=== PATIENT | female | born 1990 | race Caucasian/White ===

== ENCOUNTER → 2017-11-21 | Outpatient (CLI) | payer OTHER ==
--- NOTE | 2017-11-21 11:11 | CT ---
EXAMINATION TYPE: CT abdomen pelvis w con DATE OF EXAM: 11/21/2017 COMPARISON: HISTORY: lower ab pain/rt lower back pain CT DLP: 804.8 mGycm CONTRAST: CT scan of the abdomen and pelvis is performed with Oral Contrast and with IV Contrast, patient injec lissette with 100 mL of Isovue 300. FINDINGS: LUNG BASES-: No visible nodule. No infiltrate. LIVER/GB: No calcified gallstones. No space occupying hepatic lesion. Biliary tree is of normal ca liber. PANCREAS: No inflammation. No distinct mass. SPLEEN: No splenic enlargement. No lesion seen. ADRENALS: No nodule. No thickening. KIDNEYS/BLADDER: No hydronephrosis. No nephrolithiasis. No distinct renal mass. Urinary bladder g rossly unremarkable. BOWEL: Normal appendix. Normal bowel caliber. No inflammation. GENITAL ORGANS: IUD is noted to be in place. LYMPH NODES: No greater than 1cm abdominal or pelvic lymph nodes are appreciated. AORTA: No significant abnormality. OSSEOUS STRUCTURES: No significant abnormality is seen. OTHER: No significant additional abnormality is seen. IMPRESSION: 1. No significant abnormality to account for the patient's symptoms.
== END | disposition home or self-care (01) ==
LOC: RADCTMAIN 08:10
PROVIDERS: ATTEND Family Medicine
DX: R10.31 Right lower quadrant pain (principal)
CPT/HCPCS: 74177; Q9967

== ENCOUNTER 2018-03-13 10:23 | Day surgery (SDC) | payer OTHER ==
[2018-03-13 10:51] VITALS: TEMP 98.4
[2018-03-13] MEDS ORDERED: LIDOCAINE 1% 20 ML VIAL (10MG/ML) FOR IV START INTRADERMA ONE (10:59)
[2018-03-13] MEDS ORDERED: LACTATED RINGERS 1,000 ML IV ONE (11:00)
[2018-03-13] MEDS ORDERED: PROPOFOL 10 MG/ML 20 ML VIAL IV ONE (12:29)
[2018-03-13] MEDS ORDERED: LIDOCAINE 1% INJ 10MG/ML (20 ML MDV) ONE (12:29)
--- NOTE | 2018-03-13 12:32 | P.GSHP ---
History of Present Illness H&P Date: 03/13/18 Chief Complaint: Diarrhea This a 27-year-old female who's had chronic issues with diarrhea. Patient's had some mild right lower quadrant pain. She presents today for colonoscopy. Medications and Allergies Home Medications Medication Instructions Recorded Confirmed Type Dextroamphetamine/Amphetamine 15 mg PO DAILY 03/13/18 03/13/18 History [Adderall] Allergies Allergy/AdvReac Type Severity Reaction Status Date / Time No Known Allergies Allergy Verified 03/13/18 10:34 Surgical - Exam Vital Signs Temp Pulse Resp BP Pulse Ox 98.4 F 81 16 122/68 100 03/13/18 10:50 03/13/18 10:50 03/13/18 10:50 03/13/18 10:50 03/13/18 10:50 - General well developed, well nourished, no distress - Eyes PERRL - ENT normal pinna - Neck no masses - Respiratory normal expansion - Cardiovascular Rhythm: regular - Abdomen Abdomen: soft Assessment and Plan Assessment: Diarrhea. We'll perform colonoscopy.
--- NOTE | 2018-03-13 12:48 | P.OP ---
Date of Procedure: 03/13/18 Preoperative Diagnosis: Diarrhea Postoperative Diagnosis: Normal colon, random rectal biopsy pathology pending Procedure(s) Performed: Colonoscopy Anesthesia: MAC Surgeon: Alonzo Lam Pathology: other (Rectum) Condition: stable Disposition: PACU Description of Procedure: PROCEDURE: The patient was placed on the endoscopy table in the lateral position. Digital rectal examination was performed which revealed no abnormalities. s. Flexible colonoscope was then placed in the patient's anus and passed throughout the entire colon. The ileocecal valve was visualized. The cecum, ascending, transverse, descending and sigmoid colon were normal. The rectum was normal as well. There were no masses, polyps or diverticula noted in the entire colon. There is no evidence of inflammation in the colon. Due to the patient's symptoms of diarrhea a random rectal biopsies performed.
[2018-03-13 12:54] VITALS: RESP 18
[2018-03-13 13:08] VITALS: BP 130/65; PULSE 78
== END 2018-03-13 13:29 | disposition home or self-care (01) ==
LOC: ORWHC2ENDO 10:23
PROVIDERS: ATTEND Surgery
DX: R19.7 Diarrhea, unspecified (principal); Z79.899 Other long term (current) drug therapy
CPT/HCPCS: 81025; 88305; 45380; J2001; J2704

== ENCOUNTER 2020-10-03 06:05 | Inpatient (IN) | payer BC ==
[2020-10-03] MEDS ORDERED: CARBOPROST TROMETHAMINE 250 MCG/ML 1 ML AMP IM PRN (06:22)
[2020-10-03] MEDS ORDERED: OXYTOCIN 10 UNIT/ML 1 ML VIAL IM PRN (06:22)
[2020-10-03] MEDS ORDERED: TERBUTALINE 1 MG/ML VIAL SQ PRN (06:22)
[2020-10-03] MEDS ORDERED: METHYLERGONOVINE 0.2 MG/ML 1 ML AMP IM PRN (06:22)
[2020-10-03] MEDS ORDERED: LIDOCAINE 0.5% (PF) 5 MG/ML (50 ML SDV) SQ PRN (06:22)
[2020-10-03] MEDS ORDERED: OXYTOCIN 30 UNITS/500 ML NS 30 UNIT in SALINE 1 500ML.BAG IV SCH (06:30)
[2020-10-03] MEDS ORDERED: LACTATED RINGERS 1,000 ML IV SCH (06:30)
[2020-10-03 06:32] LABS: Glucose,Whole Blood 111 mg/dL (75-99)
[2020-10-03] MEDS: LACTATED RINGERS 1,000 ML IV SCH ×3 (06:33→14:34)
[2020-10-03 06:47] LABS: Basophils % (A) 0 %; Eosinophils # (A) 0.2 k/uL (0-0.7); Eosinophils % (A) 2 %; HCT 36.1 % (34.0-46.0); HGB 12.1 gm/dL (11.4-16.0); Lymphocytes % (A) 22 %; MCH 30.5 pg (25.0-35.0); MCHC 33.5 g/dL (31.0-37.0); Mean Platelet Volume 8.5; Monocytes # (A) 0.6 k/uL (0-1.0); Monocytes % (A) 6 %; Neutrophils % (A) 67 %; Platelet Count 237 k/uL (150-450); RBC 3.96 m/uL (3.80-5.40); RDW 13.2 % (11.5-15.5); WBC 8.9 k/uL (3.8-10.6)
--- NOTE | 2020-10-03 08:03 | P.HPOB ---
History of Present Illness H&P Date: 10/03/20 Chief Complaint: IUP at 39 3/7 weeks, GDM A1 This is a 30-year-old at 39-3/7 weeks that presents to labor and delivery for scheduled induction of labor. Patient has been receiving routine care with a diagnosis of gestational diabetes, diet-controlled. Patient has had good control of her blood sugars since the diagnosis. Patient did undergo ultrasound for estimated weight, 77th percentile ( 7-9), normal COSTA. on 09/19. Patient admits to good movement, denies vaginal bleeding or loss of fluid. On bloodwork this patient has a blood type of A+, rubella status immune, hepatitis B surface antigen negative, HIV negative, RPR is nonreactive, group beta strep cultures were negative. Review of Systems Constitutional: Denies chills, Denies fatigue, Denies fever Ears, nose, mouth and throat: Denies headache Cardiovascular: Reports leg edema Respiratory: Denies dyspnea Gastrointestinal: Denies constipation, Denies diarrhea, Denies nausea, Denies vomiting Genitourinary: Reports Past Medical History Past Medical History: No Reported History History of Any Multi-Drug Resistant Organisms: None Reported Additional Past Surgical History / Comment(s): Foot surgery and nose surgery Past Anesthesia/Blood Transfusion Reactions: No Reported Reaction Past Psychological History: No Psychological Hx Reported Smoking Status: Never smoker Past Alcohol Use History: None Reported Past Drug Use History: None Reported - Past Family History Mother Family Medical History: No Reported History Medications and Allergies Home Medications Medication Instructions Recorded Confirmed Type Aspirin 1 tab PO ONCE 10/03/20 10/03/20 History Doxylamine Succinate [Unisom] 1 tab PO ONCE 10/03/20 10/03/20 History Pnv No.95/Ferrous Fum/Folic AC 1 tab PO ONCE 10/03/20 10/03/20 History [ Multivitamin Tablet] Allergies Allergy/AdvReac Type Severity Reaction Status Date / Time No Known Allergies Allergy Verified 10/03/20 06:21 Exam Osteopathic Statement: *. No significant issues noted on an osteopathic structural exam other than those noted in the History and Physical/Consult. 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 heart tones returned be category 1 and she is ewa every 5 minutes. Results Result Diagrams: 10/03/20 06:38 Abnormal Lab Results - Last 24 Hours (Table) 10/03/20 Range/Units 06:30 POC Glucose (mg/dL) 111 H (75-99) mg/dL Assessment and Plan (1) 39 weeks gestation of Current Visit: Yes Status: Acute Code(s): Z3A.39 - 39 WEEKS GESTATION OF SNOMED Code(s): 55579594 (2) GDM (gestational diabetes mellitus), class A1 Current Visit: Yes Status: Acute Code(s): O24.410 - GESTATIONAL DIABETES MELLITUS IN , DIET CONTROLLED SNOMED Code(s): 87970134 Plan: 30-year-old at 39-3/7 weeks' known gestational diabetic is admitted to labor and delivery for induction of labor. Pitocin induction of labor is begun per hospital protocol. Options for analgesia are discussed including Stadol and epidural should she desire. We'll continue close observation, anticipate spontaneous vaginal delivery.
[2020-10-03] MEDS ORDERED: BUTORPHANOL 1 MG/ML 1 ML VIAL IV PRN (08:22)
[2020-10-03] MEDS ORDERED: fentaNYL (PF) 50 MCG/ML 5 ML AMP ONE (14:02)
[2020-10-03] MEDS ORDERED: SODIUM CHLORIDE 0.9% 100 ML BAG ONE (14:02)
[2020-10-03] MEDS ORDERED: ROPIVACAINE 5MG/ML 20ML VIAL ONE (14:02)
[2020-10-03] MEDS ORDERED: CITRIC ACID-SODIUM CITRATE 15 ML CUP PO ONE (22:42)
[2020-10-03] MEDS ORDERED: PRENATAL VIT-IRON-FOLIC ACID 1 EACH CAP PO ONE (22:45)
[2020-10-03] MEDS ORDERED: fentaNYL (PF) 50 MCG/ML 2 ML AMP ONE (23:11)
[2020-10-03] MEDS ORDERED: CARBOPROST TROMETHAMINE 250 MCG/ML 1 ML AMP IM ONE (23:11)
[2020-10-03] MEDS ORDERED: ePHEDrine SULFATE/0.9% NACL/PF 50 MG/5 ML SYRINGE IV ONE (23:11)
[2020-10-03] MEDS ORDERED: METHYLERGONOVINE 0.2 MG/ML 1 ML AMP ONE (23:11)
[2020-10-03] MEDS ORDERED: MORPHINE SULFATE (PF) 0.3 MG/0.3 ML SYR ONE (23:11)
[2020-10-03] MEDS ORDERED: OXYTOCIN 30 UNITS/500 ML NS BAG IV ONE (23:11)
[2020-10-03] MEDS ORDERED: ONDANSETRON 4 MG/2 ML VIAL ONE (23:11)
[2020-10-03] MEDS ORDERED: DIPHENOX-ATROP 2.5-0.025 MG 1 EACH TAB PO PRN (23:47)
[2020-10-04] MEDS ORDERED: miSOPROStoL 200 MCG TAB VAGINAL STA (00:14)
[2020-10-04] MEDS ORDERED: diphenhydrAMINE 50 MG/ML 1 ML VIAL IVP PRN ×2 (00:16)
[2020-10-04] MEDS ORDERED: LACTATED RINGERS 1,000 ML IV SCH (00:16)
[2020-10-04] MEDS ORDERED: NALOXONE 0.4 MG/ML 1 ML VIAL IV PRN (00:16)
[2020-10-04] MEDS ORDERED: diphenhydrAMINE 50 MG CAP PO PRN (00:16)
[2020-10-04] MEDS ORDERED: ONDANSETRON 4 MG/2 ML VIAL IVP PRN (00:16)
[2020-10-04] MEDS ORDERED: OXYTOCIN 30 UNITS/500 ML NS 30 UNIT in SALINE 1 500ML.BAG IV SCH (00:16)
[2020-10-04] MEDS ORDERED: SIMETHICONE 80 MG CHEWABLE PO PRN (00:16)
[2020-10-04] MEDS ORDERED: diphenhydrAMINE 25 MG CAP PO PRN (00:16)
[2020-10-04] MEDS ORDERED: ZOLPIDEM 5 MG TAB PO PRN (00:16)
[2020-10-04] MEDS ORDERED: METOCLOPRAMIDE 5 MG/ML 2 ML VIAL IVP PRN (00:16)
--- NOTE | 2020-10-04 00:19 | P.OP ---
Date of Procedure: 10/03/20 Preoperative Diagnosis: IUP at 39 3/7 weeks, arrest of descent and dilation Postoperative Diagnosis: Same Procedure(s) Performed: Primary low transverse section Anesthesia: epidural Surgeon: Sandra Schultz Manager Custom #1: Kayla Brambila Estimated Blood Loss (ml): 603 IV fluids (ml): 1,000 Urine output (ml): 150 Pathology: other (Placenta) Condition: stable Disposition: observation Indications for Procedure: 30-year-old at 39-3/7 weeks that presented to labor and delivery for induction of labor. Patient has known gestational diabetes and has been diet controlled. Patient was admitted to labor and delivery Pitocin induction of labor was begun. Patient made slow progress throughout labor eventually stalling at 6 cm. Infant was noted to be at -1 station. No further descent was appreciated. Exam was discussed with patient and although frustrated she understands. We'll proceed with primary low transverse section. Operative Findings: Female delivered at 2328, weight of 7 lbs. 15 oz. and Apgars of 9 and 9 at one and 5 minutes respectively. Significant uterine atony was appreciated after delivery of , 13 was given 2, Hemabate, Pitocin. Description of Procedure: Patient was taken back to the operating suite where epidural anesthesia was found to be adequate. She was then prepped and draped in normal sterile fashion in the dorsal supine position. A Pfannenstiel skin incision was made with the scalpel and carried through to the underlying layer of fascia. The fascia was then incised in the midline and extended laterally. The superior aspect of the fascial incision was then grasped zion clamps, elevated and underlying rectus muscle was dissected off sharply. Attention was then turned the inferior aspect of the fascial incision which was grasped zion clamps, elevated and underlying rectus muscle was dissected off sharply. Rectus muscles were in the midline the peritoneum was identified and entered. The bladder blade was then inserted into the pelvis. The vesicouterine peritoneum was identified and the bladder flap was created using sharp and blunt dissection. Hysterotomy incision was made with the scalpel the was encountered in the vertex presentation delivered in the usual fashion the umbilical cord was doubly clamped and cut and the infant was handed off to awaiting RN. The placenta was then delivered manually and the uterus was cleared of all clots and debris. The uterine incision was closed 0 Vicryl in a running locked fashion. A second inverting suture was performed. Bleeding was noted on multiple areas of the uterus therefore multiple [id number] sutures were used to obtain hemostasis. Significant uterine atony was appreciated, Methergine was given during closure of the hysterotomy incision. Hemabate subsequently given, followed by Methergine proximally 15-20 minutes after first injection. Contraction of the uterus was appreciated. Uterus was returned to the abdomen. The gutters were cleared of all clots and debris. Uterine incision was inspected and found to be hemostatic. The uterus is noted to be ewa and firm. The peritoneum was then loosely reapproximated. The rectus muscles were inspected and found to be hemostatic. The fascia was closed 0 Vicryl in a running fashion from one lateral edge the midline and the other lateral edge the midline. Subcutaneous tissue was irrigated found be hemostatic. Closed with 3-0 Vicryl in a running fashion. Skin was then closed with 4-0 Vicryl in a subcuticular fashion. Steri-Strips and sterile dressings were applied. Uterus appeared firm and below the umbilicus at the time of the skin and closure. All counts were noted to be correct 2. Patient did tolerate procedure well
[2020-10-04] MEDS: ACETAMINOPHEN IV (For NPO) 1,000 MG in EMPTY BAG 1 BAG IVPB SCH ×2 (03:08→18:52)
[2020-10-04] MEDS: ACETAMINOPHEN TAB 500 MG TAB PO SCH ×5 (04:05→23:15)
[2020-10-04] MEDS: IBUPROFEN 600 MG TAB PO SCH ×4 (05:02→23:24)
[2020-10-04] MEDS ORDERED: IBUPROFEN IV 800 MG in SODIUM CHLORIDE 0.9% 250 ML IV SCH (06:00)
[2020-10-04 06:07] LABS: Basophils % (A) 0 %; Eosinophils % (A) 0 %; HCT 31.6 % (34.0-46.0); HGB 10.7 gm/dL (11.4-16.0); Lymphocytes # (A) 1.4 k/uL (1.0-4.8); Lymphocytes % (A) 12 %; MCH 31.2 pg (25.0-35.0); MCHC 33.9 g/dL (31.0-37.0); Mean Platelet Volume 8.2; Monocytes # (A) 0.6 k/uL (0-1.0); Monocytes % (A) 5 %; Neutrophils # (A) 10.2 k/uL (1.3-7.7); Neutrophils % (A) 82 %; Platelet Count 192 k/uL (150-450); RBC 3.43 m/uL (3.80-5.40); RDW 13.1 % (11.5-15.5); WBC 12.5 k/uL (3.8-10.6)
--- NOTE | 2020-10-04 08:41 | P.PNOBGPC ---
Subjective - Subjective Principal diagnosis: Postop day 1, primary , arrest of descent and dilation Interval history: Patient is doing well this morning. Jaramillo remains draining clear yellow urine. Patient states her pain is well-controlled. Her lochia has been minimal overnight. Patient reports: Reports appetite normal, Reports pain well controlled : doing well Objective - Vital Signs Latest vital signs: Vital Signs Temp Pulse Resp BP Pulse Ox 10/04/20 08:00 98.0 F 91 16 101/68 10/04/20 04:30 98.5 F 91 18 123/68 95 10/04/20 03:32 98.4 F 93 16 123/67 97 10/04/20 03:02 106 H 16 118/59 98 10/04/20 02:32 100 16 133/70 99 10/04/20 02:17 95 16 137/69 100 10/04/20 02:02 108 H 16 128/69 100 10/04/20 01:47 100 16 130/66 100 10/04/20 01:32 101 H 16 145/75 98 10/04/20 01:17 99 16 137/65 99 10/04/20 01:02 104 H 16 132/59 98 10/04/20 00:47 105 H 17 129/69 97 10/04/20 00:32 105 H 16 137/80 98 10/04/20 00:17 98.2 F 100 16 133/78 99 Intake and Output 10/03/20 10/04/20 10/04/20 22:59 06:59 14:59 Intake Total 1017.533 Output Total 250 600 300 Balance -250 417.533 -300 Intake: IV 1000 Intake, IV Titration 17.533 Amount Oxytocin 30 Units/500 ml 17.533 Ns 30 unit In Saline 1 500ml.bag @ Per Protocol IV .Q0M REPLACED BY [facility] Rx#:[id number] Output: Urine 250 600 300 Other: Voiding Method Indwelling Catheter - Exam Extremities: Present: normal, edema Abdomen: Present: normal appearance, soft Incision: Present: normal, dry, intact Uterus: Present: normal, firm - Labs Labs: Abnormal Lab Results - Last 24 Hours (Table) 10/04/20 Range/Units 05:23 WBC 12.5 H (3.8-10.6) k/uL RBC 3.43 L (3.80-5.40) m/uL Hgb 10.7 L (11.4-16.0) gm/dL Hct 31.6 L (34.0-46.0) % Neutrophils # 10.2 H (1.3-7.7) k/uL Assessment and Plan (1) 39 weeks gestation of Current Visit: Yes Status: Acute Code(s): Z3A.39 - 39 WEEKS GESTATION OF SNOMED Code(s): 45866331 (2) GDM (gestational diabetes mellitus), class A1 Current Visit: Yes Status: Acute Code(s): O24.410 - GESTATIONAL DIABETES MELLITUS IN , DIET CONTROLLED SNOMED Code(s): 57937975 (3) Arrest of descent, delivered, current hospitalization Current Visit: Yes Status: Acute Code(s): O62.1 - SECONDARY UTERINE INERTIA SNOMED Code(s): 54602205 (4) Arrest of dilation, delivered, current hospitalization Current Visit: Yes Status: Acute Code(s): O62.1 - SECONDARY UTERINE INERTIA SNOMED Code(s): 11094007 (5) S/P section Current Visit: Yes Status: Acute Code(s): Z98.891 - HISTORY OF UTERINE SCAR FROM PREVIOUS SURGERY SNOMED Code(s): 562439576 (6) Uterine atony Current Visit: Yes Status: Acute Code(s): O62.2 - OTHER UTERINE INERTIA SN OMED Code(s): 1800383 Plan: 30-year-old G1 now P1 status post primary for arrest of descent and dilation. Patient is doing well this morning. Lochia has been minimal overnight. We'll plan to discontinue Jaramillo catheter. Advance diet. Encourage increased ambulation and watch bleeding closely.
--- NOTE | 2020-10-04 09:22 | P.PN ---
Progress Note - Text 10/04/20 702am 30 year old female s/p csection with spinal duramorph. pt sen today and evaluated for post op pain control, pt has a vas of 1 with no c/o n/v or pruritis
[2020-10-04] MEDS: SENNOSIDES-DOCUSATE SODIUM 1 EACH TAB PO SCH ×2 (09:58→20:03)
[2020-10-05] MEDS: IBUPROFEN 600 MG TAB PO SCH ×2 (04:57→11:09)
[2020-10-05] MEDS: SENNOSIDES-DOCUSATE SODIUM 1 EACH TAB PO SCH (08:08)
--- NOTE | 2020-10-05 08:08 | P.DS ---
Providers Date of admission: 10/03/20 06:05 Expected date of discharge: 10/05/20 Attending physician: Sandra Schultz Primary care physician: Stated None Hospital Course: This is a 30-year-old female 1 para 0 EDC 10/07/2020 at 39-3/7 weeks' gestation. Patient's history significant for gestational diabetes, diet controlled, blood type A positive, rubella status immune, group B strep cultures negative. Please see dictated history and physical for details. Patient presented for induction. Artificial amniorrhexis revealed clear fluid. She had arrest of dilatation and descent, and underwent a primary low transverse section. She gave to a liveborn female with scores of 9 and 9 at one and 5 minutes respectively. There was a nuchal cord 1 that was reduced. weighed 7 pounds 8.5 ounces or 3415 g. Please see dictated delivery note for details. Estimated blood loss 609 mL's. This morning the patient is doing well. Breast-feeding is going nicely. Infant is doing well. Incision is clean and dry, intact, Steri-Strips applied. Vital signs upon stable and the patient is afebrile. Fundus is firm and in the midline, symmetric and 18 week size. Extremities reveal trace edema. Patient complains of only minimal pain. She is judged to be in very good condition for discharge home. She will use iokl-dmt-dfyonyy ibuprofen, 600 mg every 6 hours alternating with Tylenol extra strength, 1000 mg every 4 hours as needed. No driving for 2 weeks. No intercourse. No heavy lifting. She will call with any fevers shakes or chills, foul smelling or copious lochia, with the passage of large blood clots, with any pain not alleviated by grza-egt-ctafrjr products, or indeed with any concerns. 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 Assessment: Doing well second postoperative day Patient Condition at Discharge: Good Plan - Discharge Summary Discharge Rx Participant: No New Discharge Prescriptions: No Action Aspirin 1 tab PO ONCE Pnv No.95/Ferrous Fum/Folic AC [ Multivitamin Tablet] 1 tab PO ONCE Doxylamine Succinate [Unisom] 1 tab PO ONCE Discharge Medication List Aspirin 1 tab PO ONCE 10/03/20 [History] Doxylamine Succinate [Unisom] 1 tab PO ONCE 10/03/20 [History] Pnv No.95/Ferrous Fum/Folic AC [ Multivitamin Tablet] 1 tab PO ONCE 10/03/20 [History] Follow up Appointment(s)/Referral(s): Sandra Schultz DO [Doctor of Osteopathic Medicine] - 2 Weeks Discharge Disposition: HOME SELF-CARE
[2020-10-05] MEDS: ACETAMINOPHEN TAB 500 MG TAB PO SCH (08:09)
[2020-10-05 08:25] VITALS: RESP 16
[2020-10-05 12:00] VITALS: BP 103/57; PULSE 92; TEMP 97.4
== END 2020-10-05 14:00 | disposition home or self-care (01) | DRG 788 ==
LOC: 4FBP 06:05
PROVIDERS: ADMIT Obstetrics & Gynecology Obstetrics; ATTEND Obstetrics & Gynecology Obstetrics
PROC: 3E033VJ Introduction of Other Hormone into Peripheral Vein, Percutaneous Approach (ICD-10-PCS; 2020-10-03)
PROC: 10D00Z1 Extraction of Products of Conception, Low, Open Approach (ICD-10-PCS; 2020-10-03)
PROC: 3E0P7VZ Introduction of Hormone into Female Reproductive, Via Natural or Artificial Opening (ICD-10-PCS; principal; 2020-10-03 23:15)
DX: O24.420 Gestational diabetes mellitus in childbirth, diet controlled (principal); O62.1 Secondary uterine inertia; O62.0 Primary inadequate contractions; O69.81X0 Labor and delivery complicated by cord around neck, without compression, not applicable or unspecified; Z37.0 Single live birth; Z3A.39 39 weeks gestation of pregnancy
CPT/HCPCS: 85025; 86850; 86900; 86901

== ENCOUNTER 2023-03-07 05:55 | Inpatient (IN) | payer BC ==
--- NOTE | 2023-03-06 06:21 | P.HPOB ---
History of Present Illness H&P Date: 03/06/23 Chief Complaint: Repeat section, gestational diabetes This patient is a pleasant 32-year-old 2 para 1 female estimated date of confinement 03/13/2023 estimated gestational age 39 and one sevenths weeks who presents to labor and delivery for elective repeat section due to previous section. Patient's has been complicated by gestational diabetes has been managed by Dr. Mandujano with good control. Patient's had a previous section due to failed induction of labor and wishes to have a repeat . First delivery was complicated apparently by hemorrhage secondary to uterine atony. This has been otherwise uncomplicated. Review of Systems Genitourinary: Reports Menstruation: Reports amenorrhea Past Medical History Past Medical History: Diabetes Mellitus, Skin Disorder Additional Past Medical History / Comment(s): GDM- diet controlled, rosacea, mild edema to lower legs History of Any Multi-Drug Resistant Organisms: None Reported Past Surgical History: Section Additional Past Surgical History / Comment(s): Foot surgery and nose surgery Past Anesthesia/Blood Transfusion Reactions: No Reported Reaction Past Psychological History: ADD/ADHD Smoking Status: Never smoker Past Alcohol Use History: None Reported Past Drug Use History: None Reported - Past Family History Mother Family Medical History: Hypertension Additional Family Medical History / Comment(s): neice bone cancer Father Family Medical History: Diabetes Mellitus, Hyperlipidemia, Hypertension Additional Family Medical History / Comment(s): grandmother breast cancer Medications and Allergies Home Medications Medication Instructions Recorded Confirmed Type Aspirin 1 tab PO DAILY 10/03/20 02/27/23 History Doxylamine Succinate [Unisom] 50 mg PO HS 10/03/20 02/27/23 History Pnv No.95/Ferrous Fum/Folic AC 1 tab PO DAILY 10/03/20 02/27/23 History [ Multivitamin Tablet] Allergies Allergy/AdvReac Type Severity Reaction Status Date / Time No Known Allergies Allergy Verified 02/27/23 12:48 Exam - OBG Physical Exam Abdomen: bowel sounds normal, no diffuse tenderness, no bruit present, no guarding noted, no hepatomegaly, no splenomegaly, no mass Vagina: normal moisture, no discharge Cervix: no lesion, no discharge Uterus: enlarged Results blood work shows she is A positive, rubella immune, RPR is nonreactive, hepatitis B and C are negative, maternity T 21 was 46 excess X, anatomy and growth ultrasounds have been normal, group B strep was negative. First trimester Glucola was 175. Assessment and Plan Assessment: This is a pleasant 32-year-old 2 para 1 female 39 and one sevenths weeks gestation with previous section who is requesting repeat section. Patient's also had gestational diabetes with good control. Plan is repeat low transverse section. Patient understands this surgery and risks and risks of infection, bleeding, possible injury bowel, bladder, vessels, and other organs. All the patient's questions are answered and a written consent is obtained. (1) Previous delivery affecting Status: Acute Code(s): O34.219 - MATERNAL CARE FOR UNSP TYPE SCAR FROM PREVIOUS DEL SNOMED Code(s): 119910050 (2) 39 weeks gestation of Status: Acute Code(s): Z3A.39 - 39 WEEKS GESTATION OF SNOMED Code(s): 40928310 (3) GDM (gestational diabetes mellitus), class A1 Status: Acute Code(s): O24.410 - GESTATIONAL DIABETES MELLITUS IN , DIET CONTROLLED SNOMED Code(s): 82749555
[2023-03-07] MEDS ORDERED: CARBOPROST TROMETHAMINE 250 MCG/ML 1 ML AMP IM PRN (06:13)
[2023-03-07] MEDS ORDERED: METHYLERGONOVINE 0.2 MG/ML 1 ML AMP IM PRN (06:13)
[2023-03-07] MEDS ORDERED: CITRIC ACID-SODIUM CITRATE 15 ML CUP PO ONE (06:13)
[2023-03-07] MEDS ORDERED: OXYTOCIN 10 UNIT/ML 1 ML VIAL IM PRN (06:13)
[2023-03-07] MEDS ORDERED: miSOPROStoL 200 MCG TAB PO PRN (06:13)
[2023-03-07] MEDS ORDERED: LACTATED RINGERS 1,000 ML IV ONE (06:13)
[2023-03-07] MEDS ORDERED: TRANEXAMIC 1,000 MG/100ML-NACL 1,000 MG in EMPTY BAG 1 BAG IV PRN (06:13)
[2023-03-07] MEDS ORDERED: LACTATED RINGERS 1,000 ML IV SCH (06:13)
[2023-03-07 06:36] LABS: Glucose,Whole Blood 84 mg/dL (70-110)
[2023-03-07 07:22] LABS: Basophils % (A) 0 %; Eosinophils # (A) 0.2 k/uL (0-0.7); Eosinophils % (A) 4 %; HCT 36.2 % (34.0-46.0); HGB 11.8 gm/dL (11.4-16.0); Lymphocytes # (A) 1.7 k/uL (1.0-4.8); Lymphocytes % (A) 27 %; MCH 29.2 pg (25.0-35.0); MCHC 32.6 g/dL (31.0-37.0); MCV 89.6 fL (80.0-100.0); Monocytes # (A) 0.4 k/uL (0-1.0); Monocytes % (A) 6 %; Neutrophils # (A) 3.7 k/uL (1.3-7.7); Neutrophils % (A) 60 %; Platelet Count 201 k/uL (150-450); RBC 4.04 m/uL (3.80-5.40); RDW 13.4 % (11.5-15.5); WBC 6.2 k/uL (3.8-10.6)
[2023-03-07] MEDS ORDERED: ePHEDrine 50 MG/ML 1 ML VIAL ONE (07:42)
[2023-03-07] MEDS ORDERED: DEXAMETHASONE SOD PHOSPHATE 4 MG/ML 1 ML VIAL ONE (07:42)
[2023-03-07] MEDS ORDERED: OXYTOCIN 30 UNITS/500 ML NS BAG IV ONE (07:42)
[2023-03-07] MEDS ORDERED: ONDANSETRON 4 MG/2 ML VIAL ONE (07:42)
[2023-03-07] MEDS ORDERED: PHENYLEPHRINE 10 MG/ML VIAL ONE (07:42)
[2023-03-07] MEDS ORDERED: MORPHINE SULFATE (PF) 0.3 MG/0.3 ML SYR ONE (07:42)
[2023-03-07] MEDS ORDERED: KETOROLAC 15 MG/ML 1 ML VIAL ONE (07:42)
[2023-03-07] MEDS ORDERED: NALOXONE 0.4 MG/ML 1 ML VIAL IV PRN ×2 (08:09→10:34)
--- NOTE | 2023-03-07 08:13 | P.ANPRN ---
Procedure Note - Anesthesia - Epidural/Spinal Spinal Date of Procedure: 03/07/23 Procedure Start Time: 07:50 Procedure Stop Time: 07:56 Location of Patient: OB Indication: Acute Post-Operative Pain, Requested by Surgeon Sedation Type: Awake Preparation: Sterile Dressing Position: Sitting Catheter: None Needle Guage: 25 Injectate: 300 mcg of PF -Morphine with 1.3 ml of 0.75% Bupivacaine heavy Blood Aspirated: No Pain Paresthesia on Injection Noted: No Events: Uneventful and Well Tolerated
--- NOTE | 2023-03-07 08:48 | P.OP ---
Date of Procedure: 03/07/23 Preoperative Diagnosis: #1: 39 and one sevenths week intrauterine . #2: Previous section desires repeat. #3: Gestational diabetes Postoperative Diagnosis: #1: Same. #2: Pelvic adhesions Procedure(s) Performed: #1: Repeat low transverse section. #2: Lysis of adhesions. Anesthesia: spinal Surgeon: Manuel Pinedo Rice Farmworker #1: Linda Gonzalez Estimated Blood Loss (ml): 800 Pathology: other (Placenta) Condition: stable Disposition: floor Indications for Procedure: Please see dictated H&P for intimate details of this patient's admission. Brief summary is a pleasant 32-year-old 2 para 1 female 39 and one sevenths weeks gestation admitted to labor and delivery for elective repeat section. Patient understands this surgery and risks and risks of infection, bleeding, possible injury bowel, bladder, vessels, and other organs. All the patient's questions are answered and a written consent is obtained. Operative Findings: This is a vigorous viable female infant Apgars 8 and 9 delivery time is 0809 hrs. Infant grossly appears normal. Patient had elevated adhesions to the anterior uterus and the right and left adnexal area to the peritoneum. The adhesions on the left side were dense. Description of Procedure: This patient has a Jaramillo catheter placed to straight drain. She is subsequently taken to the operating room and sat up for spinal anesthetic is administered without incident. With an adequate level of anesthesia, she has abdominal prep and drape. Scalpels and taken the previous Pfannenstiel incision is incised. A second scalpel is taken down to the fascia and the fascia scored with a knife. Fascial incision extended bilaterally using the Thomas scissors. Fascia is then dissected off the rectus muscles sharply. Rectus muscles are the peritoneum was identified and entered sharply. Immediately I noticed adhesions of the peritoneum to the anterior uterus. These were quite dense on the left side extending over to the corneal area and there were some also some adhesions on the right side. The bladder blade is placed. Bladder peritoneum was taken sharply off the lower uterine segment. Scalpels and taken a low transverse uterine incision is then made. Using a hemostat into the uterine cavity bluntly and there is loss of a copious amount of clear fluid. Uterine incision is then extended. The 's head is then guided through the incision with fundal pressure delivered. Mouth and nares are bulb suctioned. There is no evidence of a nuchal with more fundal pressure we then have delivery the rest of this infant's body. This is a vigorous viable female infant Apgars are 8 and 9 delivery time was 0809 hrs. has spontaneous respirations and good cry and grossly appears normal. The umbilical cord was then doubly clamped and cut appears to be trivascular. Baby's handed off to the nurses in attendance. The placenta is then manually extracted intact. Uterus is then externalized as best as possible through the adhesions. Uterine edges demarcated with Yanez clamps and then closed using 0 Vicryl running locked fashion 2 layers. There is also an area the anterior uterus where adhesions were I put a [id number] 0 Vicryl good hemostasis is noted. Excess fluid is removed from the abdomen and pelvis. I am able to release the adhesion on the right side. The adhesion on the left side was too dense and cannot be removed safely. This completed, uterus is placed back into the abdomen. Excellent hemostasis is noted. The fallopian tubes and ovaries all appear normal for term gestation. Parietal peritoneum was then identified as best as possible closed using 0 Vicryl running fashion. Rectus muscles reapproximated in 0 Vicryl interrupted fashion. Fascial incision closed using 0 PDS. Fascial incision is intact and hemostatic. Subcutaneous tissues and closed using a 3-0 Vicryl. Skin is and closed using jacob. All counts are correct 3. There are no complications. and mother are still taken to the birthing suite in satisfactory condition.
[2023-03-07] MEDS ORDERED: ONDANSETRON 4 MG/2 ML VIAL IVP PRN (10:34)
[2023-03-07] MEDS ORDERED: LANOLIN CREAM 5 GM TUBE TOPICAL PRN (10:34)
[2023-03-07] MEDS ORDERED: METOCLOPRAMIDE 5 MG/ML 2 ML VIAL IVP PRN (10:34)
[2023-03-07] MEDS ORDERED: SIMETHICONE 80 MG CHEWABLE PO PRN (10:34)
[2023-03-07] MEDS ORDERED: OXYTOCIN 30 UNITS/500 ML NS 30 UNIT in SALINE 1 500ML.BAG IV SCH (10:34)
[2023-03-07] MEDS ORDERED: diphenhydrAMINE 50 MG/ML 1 ML VIAL IVP PRN (10:34)
[2023-03-07] MEDS ORDERED: ZOLPIDEM 5 MG TAB PO PRN (10:34)
[2023-03-07] MEDS ORDERED: diphenhydrAMINE 25 MG CAP PO PRN (10:34)
[2023-03-07] MEDS: KETOROLAC 15 MG/ML 1 ML VIAL IVP SCH (15:53)
[2023-03-07] MEDS: LACTATED RINGERS 1,000 ML IV SCH ×2 (15:55→21:29)
[2023-03-07] MEDS: SENNOSIDES-DOCUSATE SODIUM 1 EACH TAB PO SCH ×2 (20:29→21:29)
[2023-03-07] MEDS: ACETAMINOPHEN TAB 500 MG TAB PO SCH ×2 (20:29→21:28)
[2023-03-07] MEDS: IBUPROFEN 600 MG TAB PO SCH ×2 (21:28→23:19)
[2023-03-08] MEDS: KETOROLAC 15 MG/ML 1 ML VIAL IVP SCH ×3 (01:55→15:09)
[2023-03-08] MEDS: ACETAMINOPHEN TAB 500 MG TAB PO SCH ×5 (02:07→23:51)
[2023-03-08] MEDS: LACTATED RINGERS 1,000 ML IV SCH ×2 (02:15→15:08)
[2023-03-08] MEDS: IBUPROFEN 600 MG TAB PO SCH ×4 (05:09→20:52)
--- NOTE | 2023-03-08 06:26 | P.PN ---
Progress Note - Text Progress Note Date: 03/08/23 Ms. Jules was seen, and evaluated at bedside. Postop day 1 for under spinal analgesia with Astramorph 300 g for postop pain. Today patient is comfortable sitting in her bed. Today patient rated her pain level 1 out of 10 in severity. Denied any fever, drowsiness, confusion. Denied any weakness, tingling sensation in her lower extremities. Denied any bowel or bladder problems. Moving all extremities without any difficulty. Able to walk without any difficulties. Vitals: Hemodynamically stable Continue oral pain medication as per primary team.
--- NOTE | 2023-03-08 08:38 | P.PNOBGPC ---
Subjective - Subjective Principal diagnosis: S/P RLTCS POD #1 Interval history: Pt seen and examined. Pain is well controlled. passing flatus but unable to void on own yet. Ambulating normally. Denies N/V,F/C, CP,SOB or calf pain. Patient reports: Reports appetite normal, Reports pain well controlled, Reports ambulating normally [place]: doing well Objective - Vital Signs Latest vital signs: Vital Signs Temp Pulse Resp BP Pulse Ox 03/08/23 06:28 16 03/08/23 04:15 98.4 F 73 16 106/71 98 03/08/23 02:10 14 03/07/23 23:30 98.2 F 91 14 111/69 99 03/07/23 21:58 14 03/07/23 20:15 98.2 F 81 18 112/72 99 03/07/23 18:05 16 99 03/07/23 17:00 16 99 03/07/23 16:00 97.8 F 88 16 123/79 99 03/07/23 15:00 16 03/07/23 13:00 16 03/07/23 12:00 97.3 F L 85 16 121/65 03/07/23 10:58 96.9 F L 88 16 121/72 98 03/07/23 10:28 86 16 122/68 99 03/07/23 09:51 88 16 122/64 99 03/07/23 09:35 81 16 110/64 100 03/07/23 09:22 90 16 112/76 100 03/07/23 09:09 16 99 03/07/23 09:05 80 16 107/63 100 03/07/23 08:50 96.8 F L 82 16 114/68 100 Intake and Output 03/07/23 03/08/23 03/08/23 22:59 06:59 14:59 Intake Total 1000 Output Total 285 1500 Balance -285 -500 Intake: IV 1000 Invasive Line 1 1000 Output: Urine 250 1500 Uretheral (Jaramillo) 1500 Output, Quantitative 35 Blood Loss Other: # Voids 0 - Exam Lungs: bilateral: normal Chest: Normal S1, Normal S2 Extremities: Present: normal Abdomen: Present: normal appearance, soft. Absent: distention, tenderness Incision: Present: normal, dry, intact Uterus: Present: normal, firm Assessment and Plan (1) S/P section Current Visit: No Status: Acute Code(s): Z98.891 - HISTORY OF UTERINE SCAR FROM PREVIOUS SURGERY SNOMED Code(s): 182597948 Plan: 1. increase ambulation 2. attempt to void-straight cath if necessary 3. reg diet 4. po pain meds
[2023-03-08 09:26] LABS: Basophils % (A) 0 %; Eosinophils # (A) 0.1 k/uL (0-0.7); Eosinophils % (A) 1 %; HCT 31.8 % (34.0-46.0); HGB 10.5 gm/dL (11.4-16.0); Lymphocytes # (A) 2.1 k/uL (1.0-4.8); Lymphocytes % (A) 25 %; MCH 29.6 pg (25.0-35.0); MCV 89.8 fL (80.0-100.0); Mean Platelet Volume 8.5; Monocytes # (A) 0.5 k/uL (0-1.0); Monocytes % (A) 6 %; Neutrophils # (A) 5.4 k/uL (1.3-7.7); Neutrophils % (A) 66 %; Platelet Count 198 k/uL (150-450); RBC 3.54 m/uL (3.80-5.40); RDW 13.4 % (11.5-15.5); WBC 8.3 k/uL (3.8-10.6)
[2023-03-08] MEDS: SENNOSIDES-DOCUSATE SODIUM 1 EACH TAB PO SCH ×2 (12:19→20:52)
[2023-03-09] MEDS: IBUPROFEN 600 MG TAB PO SCH ×4 (02:24→21:52)
[2023-03-09] MEDS: ACETAMINOPHEN TAB 500 MG TAB PO SCH ×3 (06:25→18:28)
[2023-03-09] MEDS: SENNOSIDES-DOCUSATE SODIUM 1 EACH TAB PO SCH (08:20)
--- NOTE | 2023-03-09 10:34 | P.PNOBGPC ---
Subjective - Subjective Principal diagnosis: S/P RLTCS POD #2 Interval history: Patient seen and examined. She is ambulating and now voiding without difficulty. Denies nausea, vomiting, chest pain, shortness of breath or calf pain. Her pain is well-controlled on by mouth pain meds. Patient reports: Reports appetite normal, Reports voiding normally, Reports pain well controlled, Reports ambulating normally [place]: doing well (in the nursery under observation) Objective - Vital Signs Latest vital signs: Vital Signs Temp Pulse Resp BP Pulse Ox 03/09/23 08:00 98.2 F 84 16 118/79 98 03/08/23 23:58 98.4 F 90 20 117/75 03/08/23 16:00 98.2 F 87 16 115/63 99 Intake and Output 03/08/23 03/09/23 03/09/23 22:59 06:59 14:59 Output Total 500 Balance -500 Output: Urine 500 Other: # Voids 1 2 1 - Exam Lungs: bilateral: normal Chest: Normal S1, Normal S2 Extremities: Present: normal Abdomen: Present: normal appearance, soft. Absent: distention, tenderness Incision: Present: normal, dry, intact Uterus: Present: normal, firm Assessment and Plan (1) S/P section Current Visit: No Status: Acute Code(s): Z98.891 - HISTORY OF UTERINE SCAR FROM PREVIOUS SURGERY SNOMED Code(s): 729388998 Plan: 1. increase ambulation 2. cont po care
[2023-03-10] MEDS: ACETAMINOPHEN TAB 500 MG TAB PO SCH ×4 (00:29→20:35)
[2023-03-10] MEDS: SENNOSIDES-DOCUSATE SODIUM 1 EACH TAB PO SCH ×3 (00:34→20:40)
[2023-03-10] MEDS: IBUPROFEN 600 MG TAB PO SCH ×4 (04:14→23:57)
--- NOTE | 2023-03-10 05:57 | P.PNOBGPC ---
Subjective - Subjective Patient reports: Reports appetite normal, Reports voiding normally, Reports pain well controlled, Reports ambulating normally : doing well, in NICU Objective - Vital Signs Latest vital signs: Vital Signs Temp Pulse Resp BP Pulse Ox 03/10/23 00:00 98.0 F 87 16 102/64 03/09/23 15:32 97.7 F 105 H 16 129/81 99 03/09/23 08:00 98.2 F 84 16 118/79 98 Intake and Output 03/09/23 03/09/23 03/10/23 14:59 22:59 06:59 Other: # Voids 1 1 1 - Exam Lungs: bilateral: normal Chest: Normal S1, Normal S2 Extremities: Present: normal Abdomen: Present: normal appearance, soft. Absent: distention, tenderness Incision: Present: normal, dry, intact Uterus: Present: normal, firm Assessment and Plan Assessment: Post-operative day #3. Patient is resting without new complaints. Patient's baby is in special care being evaluated for irritability. Patient's vital signs are stable and she is afebrile. Uterus is firm nontender and her incision is intact and dry. My impression is that this is a normal postoperative course. Plan is to continue routine postoperative care most likely discharge home later today. (1) Previous delivery affecting Current Visit: No Status: Acute Code(s): O34.219 - MATERNAL CARE FOR UNSP T YPE SCAR FROM PREVIOUS DEL SNOMED Code(s): 198412240 (2) 39 weeks gestation of Current Visit: No Status: Acute Code(s): Z3A.39 - 39 WEEKS GESTATION OF SNOMED Code(s): 31854663 (3) GDM (gestational diabetes mellitus), class A1 Current Visit: No Status: Acute Code(s): O24.410 - GESTATIONAL DIABETES MELLITUS IN , DIET CONTROLLED SNOMED Code(s): 60355765
[2023-03-11] MEDS: ACETAMINOPHEN TAB 500 MG TAB PO SCH ×2 (03:24→10:12)
[2023-03-11] MEDS: IBUPROFEN 600 MG TAB PO SCH ×3 (05:55→14:43)
--- NOTE | 2023-03-11 06:52 | P.DS ---
Providers Date of admission: 03/07/23 05:55 Expected date of discharge: 03/11/23 Attending physician: Manuel Pinedo Primary care physician: Stated None - Discharge Diagnosis(es) (1) Previous delivery affecting Current Visit: No Status: Acute (2) 39 weeks gestation of Current Visit: No Status: Acute (3) GDM (gestational diabetes mellitus), class A1 Current Visit: No Status: Acute Hospital Course: Please see dictated H&P and operative note on this patient's admission. Brief summary this is a pleasant 32-year-old 2 para 1 female 39 and one sevenths weeks gestation admitted to labor and delivery for elective repeat section and gestational diabetes. Patient undergoes a repeat low transverse section for viable female infant. The see dictated delivery note. Postoperative 4 patient's felt to be stable for discharge home follow up with me in 1 week. Procedures: Repeat low transverse section Patient Condition at Discharge: Good Plan - Discharge Summary Discharge Rx Participant: No New Discharge Prescriptions: New oxyCODONE HCL [OxyIR] 5 mg PO Q4HR PRN #18 tab PRN Reason: Pain Scale 4 - 6 Ibuprofen [Motrin] 600 mg PO Q6H #40 tab No Action Aspirin 1 tab PO DAILY Pnv No.95/Ferrous Fum/Folic AC [ Multivitamin Tablet] 1 tab PO DAILY Doxylamine Succinate [Unisom] 50 mg PO HS Discharge Medication List Aspirin 1 tab PO DAILY 10/03/20 [History] Doxylamine Succinate [Unisom] 50 mg PO HS 10/03/20 [History] Pnv No.95/Ferrous Fum/Folic AC [ Multivitamin Tablet] 1 tab PO DAILY 10/03/20 [History] Ibuprofen [Motrin] 600 mg PO Q6H #40 tab 03/07/23 [Rx] oxyCODONE HCL [OxyIR] 5 mg PO Q4HR PRN #18 tab 03/07/23 [Rx] Follow up Appointment(s)/Referral(s): Manuel Pinedo MD [STAFF PHYSICIAN] - 1 Week (Please see me in 1 week for an incision check. visit is on 04/17/2023 @10:45Am) Patient Instructions/Handouts: (DC) Activity/Diet/Wound Care/Special Instructions: No heavy lifting or strenuous activity for 6 weeks. Please call if any fever, chills, excessive vaginal bleeding, and/or abdominal pain Discharge Disposition: HOME SELF-CARE
[2023-03-11 10:40] VITALS: BP 132/84; PULSE 95; RESP 15; TEMP 97.9
[2023-03-11] MEDS: SENNOSIDES-DOCUSATE SODIUM 1 EACH TAB PO SCH (12:06)
== END 2023-03-11 15:10 | disposition home or self-care (01) | DRG 788 ==
LOC: 4FBP 05:55
PROVIDERS: ADMIT Obstetrics & Gynecology; ATTEND Obstetrics & Gynecology
PROC: 10D00Z1 Extraction of Products of Conception, Low, Open Approach (ICD-10-PCS; principal; 2023-03-07 08:00)
PROC: 0DNW0ZZ Release Peritoneum, Open Approach (ICD-10-PCS; principal; 2023-03-07 08:00)
DX: O34.211 Maternal care for low transverse scar from previous cesarean delivery (principal); O24.420 Gestational diabetes mellitus in childbirth, diet controlled; O99.344 Other mental disorders complicating childbirth; F90.9 Attention-deficit hyperactivity disorder, unspecified type; O99.892 Other specified diseases and conditions complicating childbirth; N73.6 Female pelvic peritoneal adhesions (postinfective); Z79.82 Long term (current) use of aspirin; Z79.899 Other long term (current) drug therapy; Z87.59 Personal history of other complications of pregnancy, childbirth and the puerperium; Z3A.39 39 weeks gestation of pregnancy; Z37.0 Single live birth
CPT/HCPCS: 85025; 86850; 86900; 86901; 88307